=== PATIENT | male | born 1955 | race Caucasian/White ===

== ENCOUNTER 2017-08-30 12:18 | Emergency (ER) | payer BC ==
--- NOTE | 2017-08-30 14:56 | UC ---
Skin Complaint HPI - HPI Summary HPI Summary: Pt found a tick on his right upper medial arm, and he removed i but was unable to remove the head of the tick. - History of Current Complaint Chief Complaint: UCSkin Time Seen by Provider: 08/30/17 14:07 Stated Complaint: SKIN COMPLAINT UPPER RIGHT ARM Hx Obtained From: Patient Onset/Duration: Sudden Onset Skin Exposure Onset/Duration: Hours Ago Timing: Constant Onset Severity: Mild Current Severity: Mild Location: Discrete - right upper medial arm Aggravating Factor(s): Nothing Alleviating Factor(s): Nothing Associated Signs & Symptoms: Positive: Negative Related History: Insect Bite/Sting - Allergy/Home Medications Allergies/Adverse Reactions: Allergies Allergy/AdvReac Type Severity Reaction Status Date / Time Erythromycin Allergy Intermediate Hives Verified 08/30/17 13:58 Amoxicillin [From Augmentin] Allergy Rash Verified 08/30/17 13:58 Clavulanic Acid Allergy Rash Verified 08/30/17 13:58 [From Augmentin] Review of Systems Constitutional: Negative Skin: Other - insect bite, small piece of tick remains in tact Eyes: Negative ENT: Negative Respiratory: Negative Cardiovascular: Negative Gastrointestinal: Negative Genitourinary: Negative Motor: Negative Neurovascular: Negative Musculoskeletal: Negative Neurological: Negative Psychological: Negative Is Patient Immunocompromised?: No All Other Systems Reviewed And Are Negative: Yes PMH/Surg Hx/FS Hx/Imm Hx Previously Healthy: Yes - Surgical History Surgical History: Yes Surgery Procedure, Year, and Place: LEFT KNEE SX--12/2015 - Family History Known Family History: Positive: Cardiac Disease - Social History Occupation: Retired Lives: With Family Alcohol Use: Rare Alcohol Amount: 2 beers a week Substance Use Type: None Smoking Status (MU): Former Smoker Have You Smoked in the Last Year: No When Did the Patient Quit Smoking/Using Tobacco: 1986 - Immunization History Most Recent Tetanus Shot: AUG 2014 Physical Exam Triage Information Reviewed: Yes Appearance: Well-Appearing Vital Signs: Initial Vital Signs Temp 98.0 F 08/30/17 13:59 Pulse 74 08/30/17 13:59 Resp 16 08/30/17 13:59 BP 140/82 08/30/17 13:59 Pulse Ox 100 08/30/17 13:59 Eye Exam: Normal ENT Exam: Normal Neck exam: Normal Respiratory Exam: Normal Musculoskeletal Exam: Normal Neurological Exam: Normal Psychological Exam: Normal Skin Exam: Other - tiny, black, piece of tick remains imbedded in right upper medial arm. palpable piece of insect. I attempted to remove the tick with splinter forceps but was unsuccessful. Course/Dx - Differential Diagnoses - Skin Complaint Differential Diagnoses: Tick Born Illness - Diagnoses Provider Diagnoses: Insect bite/tick. retained foreign body. Discharge - Discharge Plan Condition: Stable Disposition: HOME Prescriptions: DOXYcycline CAP(*) [DOXYcycline 100MG CAP(*)] 100 mg PO ONCE #2 cap Patient Education Materials: Tick Bite (ED) Referrals: Joyce Guillermo MD [Primary Care Provider] - If Needed
[2017-08-30 14:58] VITALS: BP 130/82
== END 2017-08-30 15:01 | disposition home or self-care (01) ==
LOC: UCCORT 12:18
DX: S40.861A Insect bite (nonvenomous) of right upper arm, initial encounter (principal); W57.XXXA Bitten or stung by nonvenomous insect and other nonvenomous arthropods, initial encounter
CPT/HCPCS: 99212; G0463

== ENCOUNTER 2020-01-03 08:31 | Emergency (ER) | payer BC ==
[2020-01-03 09:19] VITALS: BP 136/75
[2020-01-03 09:28] LABS: Influenza A Molecular POSITIVE (Negative)
--- NOTE | 2020-01-03 09:59 | UC ---
FLU HPI - HPI Summary HPI Summary: 64-year-old male presents with 2 day history of fever, chills, general malaise, fatigue, body aches, nasal congestion, runny nose, sore throat, and a dry nonproductive cough. He did receive his flu vaccine this season. Denies ear pain, dysphagia, chest pain, shortness of breath, abdominal pain, nausea, vomiting, or diarrhea. - History of Current Complaint Chief Complaint: UCGeneralIllness Stated Complaint: FLU SYMPTOMS Hx Obtained From: Patient - past Pain Intensity: 0 - Allergy/Home Medications Allergies/Adverse Reactions: Allergies Allergy/AdvReac Type Severity Reaction Status Date / Time amoxicillin [From Augmentin] Allergy Rash Verified 01/03/20 09:18 clavulanic acid Allergy Rash Verified 01/03/20 09:18 [From Augmentin] erythromycin base Allergy Hives Verified 01/03/20 09:18 Home Medications: Home Medications Hydrochlorothiazide [Hydrochlorothiazide-] 50 mg PO DAILY 08/13/12 [History Confirmed 01/03/20] Lisinopril 40 mg PO DAILY 08/13/12 [History Confirmed 01/03/20] Aspirin [Aspirin Low Dose] 81 mg PO DAILY 04/25/15 [History Confirmed 01/03/20] Glimepiride 1 mg PO BID 04/25/15 [History Confirmed 01/03/20] Sitagliptin-Metformin HCl [Janumet] 1 tab PO DAILY 05/13/15 [History Confirmed 01/03/20] traZODone TAB* [Desyrel TAB*] 1 tab PO BEDTIME 05/13/15 [History Confirmed 01/03] Cetirizine* [ZyrTEC 10 MG TAB*] 10 mg PO DAILY 03/25/16 [History Confirmed 01/03] Levothyroxine TAB* [Synthroid 100 MCG TAB*] 100 mcg PO DAILY 03/25/16 [History Confirmed 01/03/20] Acetaminophen [Tylenol Extra Strength] 1,000 mg PO ONCE PRN 01/03/20 [History Confirmed 01/03/20] Benzonatate CAP* [Tessalon 100 MG CAP*] 100 mg PO TID PRN #21 cap 01/03/20 [Rx] Dulaglutide [Trulicity] 1.5 mg SQ WEEKLY 01/03/20 [History Confirmed 01/03/20] Oseltamivir CAP* [Tamiflu CAP*] 75 mg PO BID #10 cap 01/03/20 [Rx] Verapamil TAB* [Calan TAB*] 1 dose PO DAILY 01/03/20 [History Confirmed 01/03/20 ] guaiFENesin ER TAB [Mucinex*] 600 mg PO ONCE 01/03/20 [History Confirmed ] PMH/Surg Hx/FS Hx/Imm Hx Endocrine History: Diabetes Cardiovascular History: Hypertension - Surgical History Surgical History: Yes Surgery Procedure, Year, and Place: LEFT KNEE SX--12/2015 - Family History Known Family History: Positive: Cardiac Disease, Hypertension - Social History Occupation: Employed Full-time Lives: With Family Alcohol Use: Rare Alcohol Amount: 2 beers a week Substance Use Type: None Smoking Status (MU): Former Smoker Have You Smoked in the Last Year: No When Did the Patient Quit Smoking/Using Tobacco: 1986 - Immunization History Most Recent Tetanus Shot: AUG 2014 Review of Systems All Other Systems Reviewed And Are Negative: Yes Constitutional: Positive: Fever, Chills, Fatigue Skin: Negative: Rash Eyes: Negative: Drainage, Eye Redness ENT: Positive: Sore Throat, Nasal Discharge, Sinus Congestion. Negative: Ear Ache, Sinus Pain/Tenderness Respiratory: Positive: Cough. Negative: Shortness Of Breath Cardiovascular: Negative: Chest Pain Gastrointestinal: Negative: Abdominal Pain, Vomiting, Diarrhea, Nausea Genitourinary: Positive: Negative Musculoskeletal: Positive: Myalgia Neurological/Mental Status: Positive: Negative Is Patient Immunocompromised?: No Physical Exam - Summary Physical Exam Summary: GENERAL APPEARANCE: Well developed, well nourished, alert and cooperative, and appears to be in no acute distress. EYES: Conjunctiva clear. No drainage. EARS: External auditory canals and tympanic membranes clear, hearing grossly intact. NOSE: Mild to moderate nasal congestion. No nasal discharge. THROAT: Pharyngeal erythema. No tonsilar inflammation, swelling, exudate, or lesions. Uvula midline. NECK: Neck supple, non-tender without lymphadenopathy. CARDIAC: Normal S1 and S2. No S3, S4 or murmurs. Rhythm is regular. There is no peripheral edema, cyanosis or pallor. Extremities are warm and well perfused. Capillary refill is less than 2 seconds. Peripheral pulses intact. LUNGS: Clear to auscultation without rales, rhonchi, wheezing or diminished breath sounds. Dry nonproductive cough. ABDOMEN: Positive bowel sounds. Soft, nondistended, nontender. No guarding or rebound. No masses or hepatosplenomegally. MUSKULOSKELETAL: ROM intact to all extremities. No joint erythema or tenderness. Normal muscular development. Normal gait. SKIN: Skin normal color, texture and turgor with no lesions or eruptions. Triage Information Reviewed: Yes Vital Signs: Initial Vital Signs Temp 98.9 F 01/03/20 09:16 Pulse 98 01/03/20 09:16 Resp 18 01/03/20 09:16 BP 136/75 01/03/20 09:16 Pulse Ox 100 01/03/20 09:16 Vital Signs Reviewed: Yes Flu Course/Dx - Course Course Of Treatment: 64-year-old male presents with 2 day history of fever, chills, general malaise, fatigue, body aches, nasal congestion, runny nose, sore throat, and a dry nonproductive cough. He did receive his flu vaccine this season. Denies ear pain, dysphagia, chest pain, shortness of breath, abdominal pain, nausea, vomiting, or diarrhea. Afebrile. Vital signs stable. Patient had mild-to- moderate nasal congestion, normal TMs, pharyngeal erythema without tonsillar swelling or exudate, no cervical lymphadenopathy, clear bilateral breath sounds , dry nonproductive cough, and otherwise unremarkable exam. Rapid flu test was positive for influenza A. Reviewed results with the patient. We discussed the risks and benefits of treating with Tamiflu patient is electing to start at this time. I additionally recommended symptomatic treatment including Tessalon Perles one capsule every 8 hours as needed for cough. He is to follow-up with his primary care provider in 5-7 days if symptoms are not improving. Anticipatory guidance warning symptoms were reviewed with the patient. Verbalizes understanding and agrees with plan of care. - Differential Dx/Diagnosis Differential Diagnosis/HQI/PQRI: Bronchitis, Influenza, Pneumonia, Upper Respiratory Infection Provider Diagnosis: Influenza A Discharge ED - Sign-Out/Discharge Documenting (check all that apply): Patient Departure All imaging exams completed and their final reports reviewed: No Studies - Discharge Plan Condition: Stable Disposition: HOME Prescriptions: Benzonatate CAP* [Tessalon 100 MG CAP*] 100 mg PO TID PRN #21 cap PRN Reason: Cough Oseltamivir CAP* [Tamiflu CAP*] 75 mg PO BID #10 cap Patient Education Materials: Influenza (ED) Referrals: Elizabeth Hamm PA [Primary Care Provider] - 5 Days Additional Instructions: Your flu test in the clinic today was positive for influenza A. Start Tamiflu 1 capsule twice a day for 5 days. Get plenty of rest. Drink plenty of fluids to avoid dehydration especially if you are running any fever. Take over the counter acetaminophen (Tylenol) or ibuprofen (Advil, Motrin) according to directions as needed for pain or fever. Take Tessalon Perles 1 cap every 8 hours as needed for cough. Use salt water gargles several times a day if you have a sore throat. You may also use Chloraseptic spray or Cepacol lonzenges according to directions which contain a numbing medication and can provide some temporary relief from your sore throat. Follow up with your primary care provider in 5-7 days if symptoms persist. Seek immediate medical attention in the emergency room if you have fever greater than 100.5 F despite taking acetaminophen or ibuprofen, have chest pain , difficulty breathing, are unable to swallow, or have any worsening of symptoms. - Billing Disposition and Condition Condition: STABLE Disposition: Home
== END 2020-01-03 10:27 | disposition home or self-care (01) ==
LOC: UCCORT 08:31
DX: J10.1 Influenza due to other identified influenza virus with other respiratory manifestations (principal); E11.9 Type 2 diabetes mellitus without complications; I10 Essential (primary) hypertension; Z79.84 Long term (current) use of oral hypoglycemic drugs; Z88.0 Allergy status to penicillin; Z88.1 Allergy status to other antibiotic agents; Z79.82 Long term (current) use of aspirin; Z87.891 Personal history of nicotine dependence
CPT/HCPCS: 99212; G0463